=== PATIENT | female | born 1985 | race Caucasian/White ===

== ENCOUNTER 2018-10-13 06:41 | Day surgery (SDC) | payer BC ==
[2018-10-13 07:28] VITALS: BMI 36.8
[2018-10-13 09:04] VITALS: BP 108/71; PULSE 69; TEMP 98.5
--- NOTE | 2018-10-13 10:30 | OP ---
DATE OF OPERATION: 10/13/2018 SURGEON: Jhon Jose MD PREOPERATIVE DIAGNOSIS: Weight re-gain, status post prior Shyam-en-Y gastric bypass. POSTOPERATIVE DIAGNOSIS: Dilated gastric outlet. PROCEDURE: Upper endoscopy/esophagogastroduodenoscopy. REASON FOR PROCEDURE: This is a 33-year-old female who presents for re-weight, status post a prior Shyam-en-Y gastric bypass in 2009. To further evaluate possible reasons, an upper endoscopy was scheduled. The risks and benefits of the procedure were explained. These included bleeding; infection; injury to surrounding structures including the oral cavity, esophagus, stomach; bowel perforation; obstruction; stricture; CA; DVT; PE; as some of the complications. Patient understood and signed informed consent. DESCRIPTION OF PROCEDURE: Patient was placed in the left lateral decubitus position. Anesthesia was given by Anesthesia. A bite block was placed. Timeout was performed. The endoscope was placed into the patient's mouth and inserted via the oral cavity into the esophagus, GE junction, into the gastric pouch, and up to the level of the gastric outlet, and into the Shyam-en-Y gastric bypass limbs. There was noted to be a dilated gastric outlet approximately 3 cm in size, consistent with the reason for weight re-gain. Stomach was suctioned after pictures were taken and the endoscope fully removed. The patient tolerated the procedure well, transferred to recovery room in stable condition. JHON JOSE M.D. [id number]
== END 2018-10-13 08:55 | disposition home or self-care (01) ==
LOC: JASU-ENDO 06:41
PROVIDERS: ATTEND Surgery
PROC: 0DJ08ZZ Inspection of Upper Intestinal Tract, Via Natural or Artificial Opening Endoscopic (ICD-10-PCS; principal; 2018-10-13 07:30)
DX: E66.01 Morbid (severe) obesity due to excess calories (principal); Z98.84 Bariatric surgery status; D64.9 Anemia, unspecified; F17.200 Nicotine dependence, unspecified, uncomplicated
CPT/HCPCS: 84703